=== PATIENT | male | born 1990 | race Caucasian/White ===

== ENCOUNTER 2017-07-24 08:44 | Emergency (ER) | payer OTHER ==
[2017-07-24] MEDS: IBUPROFEN 600 MG TAB PO (09:04)
[2017-07-24] MEDS: ACETAMINOPHEN 325 MG TAB PO (09:04)
[2017-07-24 09:41] LABS: INFLUENZA A AMPLIFICATION POSITIVE (NEGATIVE); INFLUENZA B AMPLIFICATION NEGATIVE (NEGATIVE)
== END 2017-07-24 10:20 | disposition home or self-care (01) ==
LOC: M ED 08:44
DX: J09.X2 Influenza due to identified novel influenza A virus with other respiratory manifestations (principal)
CPT/HCPCS: 87502

== ENCOUNTER 2017-10-15 11:35 | Emergency (ER) | payer OTHER | END 2017-10-15 13:06 | disposition home or self-care (01) | LOC: M ED 11:35 | DX: M25.561 Pain in right knee (principal); Z98.890 Other specified postprocedural states | CPT/HCPCS: 73564 ==